=== PATIENT | female | born 2000 | race African-American/Black ===

== ENCOUNTER 2022-09-15 09:04 | Emergency (ER) | payer MEDICAID, OTHER ==
[2022-09-15] MEDS ORDERED: Sodium Chloride 0.9% 10 ML Syringe FLUSH PRN (09:22)
[2022-09-15] MEDS ORDERED: Sodium Chloride 0.9% 1,000 ML IV ONE (09:22)
[2022-09-15] MEDS ORDERED: Ketorolac 30 MG/ML SDV IVPUSH ONE (09:22)
[2022-09-15] MEDS ORDERED: Ondansetron 4 MG/2 ML SDV IVPUSH ONE (09:22)
[2022-09-15 10:12] LABS: BASOPHILS PERCENT AUTO 0.3 % (0.0-1.0); EOSINOPHILS PERCENT AUTO 1.7 % (1.0-3.0); HEMATOCRIT 38.7 % (37.0-47.0); HEMOGLOBIN 13.2 g/dL (12.0-16.0); LYMPHOCYTES PERCENT AUTO 46.1 % (20.5-50.1); MEAN CORPUSCULAR HEMOGLOBIN 28.3 pg (27.0-34.0); MEAN CORPUSCULAR HGB CONC 34.1 g/dL (33.0-35.0); MEAN CORPUSCULAR VOLUME 82.9 fL (80-100); MONOCYTES PERCENT AUTO 11.7 % (2-8); NEUTROPHILS PERCENT AUTO 40.2 % (42.2-75.2); PLATELET COUNT,PLT 266 10^3/uL (150-450); RED BLOOD CELL COUNT 4.67 10^6/uL (4.2-5.4); WHITE BLOOD CELL COUNT,WBC 3.5 10^3/uL (5.0-10.0)
[2022-09-15 10:30] LABS: ALANINE AMINOTRANSFERASE,ALT 21 U/L (14-59); ALBUMIN 3.8 g/dL (3.4-5.0); ALKALINE PHOSPHATASE 81 U/L (46-116); ANION GAP 11.6 mEq/L (7-13); ASPARTATE AMNIOTRANSFERASE,AST 21 U/L (15-37); BILIRUBIN TOTAL 0.5 mg/dL (0.2-1.0); BLOOD UREA NITROGEN,BUN 7 mg/dL (7-18); BUN/CREATININE RATIO 10.8 (No establ ref range); CALCIUM 8.3 mg/dL (8.5-10.1); CARBON DIOXIDE,CO2 28 mmol/L (21-32); CHLORIDE,CL 104 mmol/L (98-107); CREATININE 0.65 mg/dL (0.55-1.02); GLUCOSE RANDOM 90 mg/dL (70-99); POTASSIUM,K 3.6 mmol/L (3.5-5.1); PROTEIN TOTAL,TP 7.5 g/dL (6.4-8.2); SODIUM,NA 140 mmol/L (136-145)
[2022-09-15 10:31] LABS: C-REACTIVE PROTEIN < 0.2 mg/dL (0.0-0.9); ESTIMATED GFR 127 mL/min (>=60)
[2022-09-15 10:33] LABS: LACTIC ACID 0.8 mmol/L (0.4-2.0)
== END 2022-09-15 11:21 | disposition home or self-care (01) ==
LOC: DL.ED 09:04
DX: B34.9 Viral infection, unspecified (principal); Z20.822 Contact with and (suspected) exposure to COVID-19
CPT/HCPCS: 36415; 80053; 83605; 83735; 84145; 85025; 86140; 87804; 96361; 96374; 96375; 99283; 99284-25; J1885; J2405; J3490; J7030; U0002